=== PATIENT | male | born 1985 | race Caucasian/White ===

== ENCOUNTER 2019-03-27 21:04 | Observation (INO) | payer OTHER ==
[~2019-03-27] VITALS: Ht 170.2 cm; Wt 198.6 kg
[~2019-03-27 21:04] MED LIST: ALPR1TAB2 PO; HYDR-4011 PO
[2019-03-27 21:06] VITALS: Ht 170.2 cm; Wt 198.6 kg
[2019-03-27] MEDS ORDERED: KETOROLAC 15 MG INJ IV STA (21:45)
[2019-03-27] MEDS ORDERED: morphine 4 MG/ML VIAL IV STA (21:56)
[2019-03-27] MEDS ORDERED: ONDANSETRON 4 MG INJ IV STA (21:56)
[2019-03-27] MEDS ORDERED: ASPIRIN 81 MG TAB PO ONE (22:00)
[2019-03-27] MEDS ORDERED: morphine 2 MG INJ IV PRN (23:00)
[2019-03-27] MEDS ORDERED: ACETAMINOPHEN 325 MG TAB PO PRN (23:00)
[2019-03-27] MEDS ORDERED: NITROGLYCERIN (SL) 0.4 MG TAB SL PRN (23:00)
[2019-03-27] MEDS ORDERED: NACL 0.9% 3 ML SYG IV SCH (23:00)
[2019-03-27] MEDS ORDERED: DOCUSATE SODIUM 100 MG CAP PO PRN (23:00)
[2019-03-27] MEDS ORDERED: ONDANSETRON 4 MG INJ IV PRN (23:00)
[2019-03-27] MEDS ORDERED: BISACODYL (EC) 5 MG TAB PO PRN (23:00)
[2019-03-28 01:01] VITALS: BP 130/65; PULSE 75; RESP 20
[2019-03-28] MEDS ORDERED: ENOXAPARIN 40 MG/0.4 ML SYG SC ONE (02:30)
[2019-03-28 03:04] VITALS: BP 132/61; PULSE 84; RESP 23
[2019-03-28 08:13] VITALS: BP 133/76; PULSE 82; RESP 20
[2019-03-28 14:07] VITALS: BP 125/69; PULSE 81; RESP 20
[2019-03-29] MEDS ORDERED: ENOXAPARIN 40 MG/0.4 ML SYG SC SCH (09:00)
== END 2019-03-28 15:20 | disposition left against medical advice (07) ==
LOC: E/R 21:04 → 6WM 23:03
PROVIDERS: ADMIT Family Medicine; ATTEND Family Medicine
DX: R07.9 Chest pain, unspecified (principal); E66.01 Morbid (severe) obesity due to excess calories; Z68.44 Body mass index [BMI] 60.0-69.9, adult; F41.9 Anxiety disorder, unspecified; G47.33 Obstructive sleep apnea (adult) (pediatric); M79.661 Pain in right lower leg; Z87.891 Personal history of nicotine dependence
CPT/HCPCS: 36415; 71045; 80053; 80061; 82550; 82553; 83036; 83690; 83735; 84443; 84484; 85025; 85378; 93005; 93306; 96374; 96375; J1650; J1885; J2270; J2405; Z7500; Z7502; Z7610; G0378